=== PATIENT | female | born 1940 | race Caucasian/White ===

== ENCOUNTER 2016-10-22 00:31 | Emergency (ER) | payer MEDICARE, OTHER ==
[2016-10-22] MEDS ORDERED: Sodium Chloride 0.9% 10 ML Syringe FLUSH PRN (00:32)
--- NOTE | 2016-10-22 02:01 | EDM.PDOC ---
ED HPI GENERAL MEDICAL PROBLEM - General Chief Complaint: Chest Pain Stated Complaint: CHEST/BACK PAIN Time Seen by Provider: 10/22/16 00:35 Source of Information: Reports: Patient History Limitations: Reports: No Limitations - History of Present Illness INITIAL COMMENTS - FREE TEXT/NARRATIVE: This patient comes in with some vague pains related to MS she complains of pain in her upper legs and arms and sometimes she gets a stabbing pain in her back in the intrascapular area. She denies any shortness of breath. She took some tramadol and Advil earlier and that helped some but it's wearing off now. Most the pain seems to be in the upper thighs. chest Pain Score (Numeric/FACES): 2 - Related Data Allergies Allergy/AdvReac Type Severity Reaction Status Date / Time No Known Allergies Allergy Verified 10/22/16 00:32 Home Meds: Home Meds Lisinopril [Prinivil] 40 mg PO DAILY 05/10/13 [History] Lovastatin [Mevacor] 40 mg PO BEDTIME 05/10/13 [History] Metoprolol Succinate [Toprol XL 100mg] 100 mg PO DAILY 05/10/13 [History] traMADol [Ultram] 3 tab PO TID PRN 05/10/13 [History] Docusate Sodium/Sennosides [Senokot-S] 2 each PO BEDTIME PRN 06/30/13 [History] Oxybutynin Chloride 5 mg PO DAILY 06/30/13 [History] Polyethylene Glycol 3350 [MiraLAX] 17 gm PO DAILY PRN 06/30/13 [History] Gabapentin PO TID 11/22/14 [History] Cholecalciferol (Vitamin D3) [Vitamin D3] 1,000 units PO DAILY 10/22/16 [History ] Past Medical History HEENT History: Reports: Cataract Cardiovascular History: Reports: Angina, High Cholesterol, Hypertension Genitourinary History: Reports: Neurogenic Bladder [employer] History: Reports: Musculoskeletal History: Reports: Osteoarthritis Neurological History: Reports: MS Psychiatric History: Reports: Depression Endocrine/Metabolic History: Reports: Obesity/BMI 30+ Hematologic History: Reports: None Immunologic History: Reports: None Dermatologic History: Reports: Psoriasis - Past Surgical History HEENT Surgical History: Reports: Cataract Surgery GI Surgical History: Reports: Bariatric Procedure, Other (See Below) Other GI Surgeries/Procedures: RNY 2016 Musculoskeletal Surgical History: Reports: None Social & Family History - Tobacco Use Smoking Status *Q: Never Smoker Years of Tobacco use: 4 Used Tobacco, but Quit: Yes Month Tobacco Last Used: apr Second Hand Smoke Exposure: No - Caffeine Use Caffeine Use: Reports: Coffee - Alcohol Use Days Per Week of Alcohol Use: 0 - Recreational Drug Use Recreational Drug Use: No - Living Situation & Occupation Living situation: Reports: , with Spouse ED ROS GENERAL - Review of Systems Review Of Systems: ROS reveals no pertinent complaints other than HPI. ED EXAM, GENERAL - Physical Exam Exam: See Below Exam Limited By: No Limitations General Appearance: Alert, WD/WN, Mild Distress Eye Exam: Bilateral Eye: Normal Inspection Throat/Mouth: Normal Inspection Head: Atraumatic Neck: Normal Inspection Respiratory/Chest: Lungs Clear Cardiovascular: Regular Rate, Rhythm, No Murmur GI/Abdominal: Non-Tender (A suprapubic catheter is in place) Extremities: Normal Inspection Neurological: Alert, Oriented, CN II-XII Intact, Normal Cognition, Other (She is in a wheelchair) Psychiatric: Normal Affect Skin Exam: Warm, Dry Course - Vital Signs Last Recorded V/S: Last Vital Signs Temp 36.8 C 10/22/16 00:38 Pulse 64 10/22/16 00:38 Resp 19 10/22/16 00:38 BP 197/112 H 10/22/16 00:38 Pulse Ox 96 10/22/16 00:38 - Orders/Labs/Meds Orders: Active Orders 24 hr Category Date Time Status EKG Documentation Completion [RC] ASDIRECTED Care 10/22/16 00:31 Active Chest 1V Frontal [CR] Urgent Exams 10/22/16 00:53 Taken Sodium Chloride 0.9% [Saline Flush] Med 10/22/16 00:32 Active 10 ml FLUSH ASDIRECTED PRN Saline Lock Insert [OM.PC] Routine Oth 10/22/16 00:32 Ordered EKG 12 Lead [EK] Routine Ther 10/22/16 00:31 Ordered Medication Orders Sodium Chloride (Saline Flush) 10 ml FLUSH ASDIRECTED PRN PRN Reason: Keep Vein Open Labs: Laboratory Tests 10/22/16 10/22/16 Range/Units 00:40 00:40 WBC 11.1 H (4.5-11.0) K/uL RBC 4.62 (3.30-5.50) M/uL Hgb 13.5 (12.0-15.0) g/dL Hct 40.0 (36.0-48.0) % MCV 87 (80-98) fL MCH 29 (27-31) pg MCHC 34 (32-36) % Plt Count 152 (150-400) K/uL Neut % (Auto) 83 H (36-66) % Lymph % (Auto) 10 L (24-44) % [place] % (Auto) 6 (2-6) % Eos % (Auto) 1 L (2-4) % Baso % (Auto) 0 (0-1) % Sodium 137 L (140-148) mmol/L Potassium 4.0 (3.6-5.2) mmol/L Chloride 104 (100-108) mmol/L Carbon Dioxide 26 (21-32) mmol/L Anion Gap 11.0 (5.0-14.0) mmol/L BUN 19 H (7-18) mg/dL Creatinine 1.0 (0.6-1.0) mg/dL Est Cr Clr Drug Dosing 44.80 mL/min Estimated GFR (MDRD) 54 L (>60) Glucose 162 H (74-106) mg/dL Calcium 8.5 (8.5-10.1) mg/dL Total Bilirubin 0.5 (0.2-1.0) mg/dL AST 15 (15-37) U/L ALT 14 (12-78) U/L Alkaline Phosphatase 92 (46-116) U/L Troponin I < 0.017 (0.000-0.056) ng/mL Total Protein 7.0 (6.4-8.2) g/dL Albumin 3.1 L (3.4-5.0) g/dL Globulin 3.9 H (2.3-3.5) g/dL Albumin/Globulin Ratio 0.8 L (1.2-2.2) Meds: Medications Generic Name Dose Route Start Last Admin Trade Name Freq PRN Reason Stop Dose Admin Sodium Chloride 10 ml 10/22/16 00:32 Saline Flush FLUSH ASDIRECTED PRN Keep Vein Open - Radiology Interpretation Free Text/Narrative:: Chest x-ray showed normal heart size normal lung markings and is similar to an chest x-ray from several years ago. - Re-Assessments/Exams Free Text/Narrative Re-Assessment/Exam: 10/22/16 02:10 EKG showed a sinus rhythm at 65 bpm some suggestion of LVH. No evidence of any ischemia Departure - Departure Time of Disposition: 02:03 Disposition: Home, Self-Care 01 Condition: Fair Clinical Impression: Exacerbation of multiple sclerosis, Muscle pain Referrals: Heriberto Marino MD [Primary Care Provider] - Forms: ED Department Discharge Additional Instructions: Continue to use your regular medications but if you need more pain relief then stop the tramadol and instead you may try Percocet 5/325 take one or 2 every 4 hours as needed. This medication can cause sedation and cause falls. It contains a mild narcotic and is just for occasional use. #15 tablets dispensed - My Orders Last 24 Hours: My Active Orders 10/22/16 00:53 Chest 1V Frontal [CR] Urgent - Assessment/Plan Last 24 Hours: My Active Orders 10/22/16 00:53 Chest 1V Frontal [CR] Urgent
[2016-10-22 03:01] VITALS: BP 151/75
--- NOTE | 2016-10-22 11:33 | CR ---
Chest 1V Frontal INDICATION: pain FINDINGS: Comparison 06/30/2013. Shallow inspiration. Heart size accentuated by portable AP technique . Suggestion of mild bilateral nodular interstitial infiltrates are nonspecific. Recommend follow-up PA and lateral chest x-ray when clinically feasible.
== END 2016-10-22 02:15 | disposition home or self-care (01) ==
LOC: JP.ED 00:31
DX: G35 Multiple sclerosis (principal); E78.00 Pure hypercholesterolemia, unspecified; I10 Essential (primary) hypertension; M19.90 Unspecified osteoarthritis, unspecified site; F32.9 Major depressive disorder, single episode, unspecified; E66.9 Obesity, unspecified; Z98.49 Cataract extraction status, unspecified eye; Z98.84 Bariatric surgery status; Z79.899 Other long term (current) drug therapy
CPT/HCPCS: 36415; 71010; 71010-26; 80053; 84484; 85025; 93005; 93010; 99284; 99285-25